=== PATIENT | female | born 1985 | race Two or more races ===

== ENCOUNTER 2022-02-11 05:29 | Emergency (ER) | payer SELFPAY ==
[~2022-02-11] VITALS: Ht 157.5 cm; Wt 61.0 kg
[2022-02-11 05:32] VITALS: BP 105/74
[2022-02-11] MEDS ORDERED: ACETAMINOPHEN 325MG TABLET PO ONE (05:45)
[2022-02-11] MEDS ORDERED: T3 PO (07:18)
[2022-02-11] MEDS ORDERED: IBUP-2028 PO (07:18)
== END 2022-02-11 08:13 | disposition home or self-care (01) ==
LOC: ER 05:29
DX: M54.9 Dorsalgia, unspecified (principal); M54.2 Cervicalgia; S00.531A Contusion of lip, initial encounter; G89.11 Acute pain due to trauma; V49.59XA Passenger injured in collision with other motor vehicles in traffic accident, initial encounter; Y93.89 Activity, other specified; Y92.89 Other specified places as the place of occurrence of the external cause
CPT/HCPCS: 99284